=== PATIENT | female | born 1960 | race Caucasian/White ===

== ENCOUNTER 2018-11-15 14:18 | Emergency (ER) | payer SELFPAY ==
[2018-11-15] MEDS ORDERED: methylPREDNISolone Sod Succ/PF 125 MG/2 ML VIAL ONE (14:35)
[2018-11-15] MEDS ORDERED: diphenhydrAMINE 50 MG/ML VIAL ONE (14:35)
[2018-11-15] MEDS ORDERED: Famotidine/PF 20 mg/2ml Vial ONE (14:35)
== END 2018-11-15 16:30 | disposition home or self-care (01) ==
LOC: ERS 14:18
DX: L23.9 Allergic contact dermatitis, unspecified cause (principal); Z71.6 Tobacco abuse counseling; F17.210 Nicotine dependence, cigarettes, uncomplicated; J45.909 Unspecified asthma, uncomplicated
CPT/HCPCS: 96374; 96375; 99406; J1200; J2930; S0028